=== PATIENT | female | born 1950 | race Caucasian/White ===

== ENCOUNTER 2024-06-05 21:16 | Emergency (ER) | payer OTHER, SELFPAY ==
[2024-06-05 21:32] VITALS: BP 111/57; PULSE 59; RESP 18; TEMP 37.5; O2SAT 97; BMI 17.7
--- NOTE | 2024-06-05 21:39 | DI.RAD.S_ITS ---
PROCEDURE: XR FOREARM RT 2V INDICATIONS: patient fell on and injured Right arm TECHNIQUE: 2 views of the forearm were acquired. COMPARISON: None. FINDINGS: Bones: Comminuted mildly impacted fractures involving the distal radius and ulna. Soft tissues: No suspicious soft tissue calcifications or masses. IMPRESSION: Distal radial and ulnar comminuted fractures. Approved by: Lana Daniels M.D.,Ph.D. on 06/05/2024 at 22:50
--- NOTE | 2024-06-05 21:39 | DI.RAD.S_ITS ---
PROCEDURE: XR WRIST RT MIN 3V INDICATIONS: patient fell on and injured Right arm TECHNIQUE: 4 views of the wrist were acquired. COMPARISON: None. FINDINGS: Bones: Comminuted fractures involving the distal radius and ulna. 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 Soft tissues: No suspicious soft tissue calcifications. IMPRESSION: Distal radial and ulnar comminuted fractures. Approved by: Lana Daniels M.D.,Ph.D. on 06/05/2024 at 22:52
--- NOTE | 2024-06-05 21:39 | DI.RAD.S_ITS ---
PROCEDURE: XR HAND RT MIN 3V INDICATIONS: patient fell on and injured Right arm TECHNIQUE: 3 views of the hand(s) acquired. COMPARISON: Same-day wrist and forearm radiographs 06/05/2024. FINDINGS: Bones: No fractures or dislocations. Carpal bones are normally aligned. No suspicious bony lesions. Scattered interphalangeal degenerative changes. 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 Please see separately dictated wrist and forearm radiographs for description of ulnar and radial fractures. Soft tissues: No suspicious soft tissue calcifications. IMPRESSION: Distal radial and ulnar fractures. Scattered interphalangeal and 1st CMC joint degenerative changes. Approved by: Lana Daniels M.D.,Ph.D. on 06/05/2024 at 22:53
[2024-06-05] MEDS: OXYCODONE IR 5 MG TABLET PO (23:24)
[2024-06-05] MEDS: ACETAMINOPHEN 325 MG TABLET 975 MG PO (23:24)
[2024-06-05] MEDS: LIDOCAINE 2% INJ SDV 5ML 20 ML INJ (23:24)
--- NOTE | 2024-06-05 23:32 | ED_ITS ---
HPI - Extremity Injury (Upper) General Chief Complaint: Extremity Injury, Upper Stated Complaint: GLF No Thinners, R Wrist Injury Time Seen by Provider: 06/05/24 23:07 Source: patient Mode of arrival: Ambulatory History of Present Illness HPI narrative: 74-year-old female presents by private vehicle for evaluation of right wrist injury. She was walking into a building to watch a play when she tripped, landing sideways in the bushes. She used her right hand to catch herself in her fall. Obvious deformity to right wrist. Patient denies hitting her head, denies loss of consciousness, denies use of blood thinners. Related Data Previous Rx's Medication Instructions Recorded oxycodone-acetaminophen 5 mg-325 1 tab PO Q6H PRN pain #10 tabs 06/06/24 mg tablet Allergies Allergy/AdvReac Type Severity Reaction Status Date / Time No Known Drug Allergies Allergy Verified 06/05/24 21:32 Patient History Social History Smoking Status: Never smoker Smoking Status: Never smoker Exam Initial Vital Signs Initial Vital Signs: Vital Signs Temperature 99.5 F 06/05/24 21:32 Pulse Rate 59 L 06/05/24 21:32 Respiratory Rate 18 06/05/24 21:32 Blood Pressure 111/57 L 06/05/24 21:32 Pulse Oximetry 97 06/05/24 21:32 Oxygen Delivery Method Room Air 06/05/24 21:32 Const: Awake, alert, no acute distress, nontoxic appearing Cardiac: Bradycardia, regular rhythm RESP: unlabored, conversational without dyspnea GI: Soft, nontender, nondistended, no rebound, no guarding MSK: Obvious deformity to right wrist, strong radial pulses, intact sensation, able to wiggle fingers, capillary refill less than 2 seconds Skin: Warm, Dry, intact, no rashes Neuro: AO x3, CN II-XII grossly intact, moves all extremities Procedures Nerve Block Nerve Block 1: Time out performed: Yes Local Anesthetic: lidocaine 2% Amount of anesthesia used (mL): 10 Side: right Intraoral Nerve Block: other (hematoma) Procedure Successful: Yes Patient Tolerated Procedure: Well and No complications Complications: none Orthopedic Fracture Reduction Fracture #1: Time Out Performed: Yes Side: right Fracture Reduction Location: radius and ulna Analgesia: hematoma block Technique: direct manipulation and traction/counter-traction Post Reduction X-rays Demonstrate: acceptable reduction Post-reduction neuro exam: intact Post-reduction vascular exam: intact Splint Applied: Yes Patient Tolerated Procedure: Well and No complications Course Orders Ordered: Discontinued Medications Acetaminophen (Acetaminophen 325 Mg Tablet) 975 mg PO NOW ONE Stop: 06/05/24 23:08 Last Admin: 06/05/24 23:24 Dose: 975 mg Documented By: TARIQ Lidocaine HCl (Lidocaine 2% Inj Sdv 5ml) 20 ml INJ NOW ONE Stop: 06/05/24 23:08 Last Admin: 06/05/24 23:24 Dose: 20 ml Documented By: TARIQ Lidocaine HCl (Lidocaine 1% 20 Ml) 3 ml SUBCUT NOW ONE Stop: 06/05/24 23:18 Lidocaine HCl (Lidocaine 2% Inj Sdv 5ml) 10 ml TOP NOW ONE Stop: 06/05/24 23:19 Last Admin: 06/05/24 23:24 Dose: Not Given Documented By: TARIQ Ondansetron HCl (Ondansetron 4 Mg Odt Prepack) 1 bottle MISC DIRECTED ONE Stop: 06/06/24 00:48 Last Admin: 06/06/24 01:03 Dose: 1 bottle Documented By: TARIQ Oxycodone HCl (Oxycodone Ir 5 Mg Tablet) 5 mg PO NOW ONE Stop: 06/05/24 23:08 Last Admin: 06/05/24 23:24 Dose: 5 mg Documented By: TARIQ Oxycodone/Acetaminophen (Oxycodone/Apap 5/325 Prepack) 1 bottle MISC DIRECTED ONE Stop: 06/06/24 00:48 Last Admin: 06/06/24 01:03 Dose: 1 bottle Documented By: TARIQ Vital Signs Vital signs: Vital Signs - 8 hr 06/06/24 01:27 Pulse Rate 58 L Respiratory Rate 16 Blood Pressure 110/60 Pulse Oximetry 100 MDM - Extremity Injury (Upper) Imaging Data Extremity x-ray #1: Radiologist's Impression: PROCEDURE: XR WRIST RT MIN 3V INDICATIONS: patient fell on and injured Right arm TECHNIQUE: 4 views of the wrist were acquired. COMPARISON: None. FINDINGS: Bones: Comminuted fractures involving the distal radius and ulna. 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 Soft tissues: No suspicious soft tissue calcifications. IMPRESSION: Distal radial and ulnar comminuted fractures. Approved by: Lana Daniels M.D.,Ph.D. on 06/05/2024 at 22:52 Extremity x-ray #2: Radiologist's Impression: PROCEDURE: XR WRIST RT 2V INDICATIONS: post reduction image TECHNIQUE: 2 views of the wrist were acquired. COMPARISON: [facility], CR, XR WRIST RT MIN 3V, 06/05/2024, 21:38. FINDINGS: Bones: Status post interval casting, which partially obscures the fine osseous and soft tissue detail. There is redemonstration of comminuted distal radial fracture with decreased impaction compared to prior radiograph. Distal ulnar comminuted fracture. Overall alignment status post reduction. Soft tissues: No suspicious soft tissue calcifications. IMPRESSION: Status post casting and reduction of distal radial and ulnar fractures in improved alignment compared to prior. Approved by: Lana Daniels M.D.,Ph.D. on 06/06/2024 at 1:20 MDM Narrative Medical decision making narrative: Ground level fall with obvious deformity to right wrist. Neurovascularly intact on arrival. Hematoma block administered with excellent analgesia. Patient initially had some neurapraxia type pains prior to reduction of wrist joint, however after traction was applied and the bones were set an improved alignment the patient reported resolution of the stinging pains in her hand. Post procedure and post splint application the patient had intact sensation, was able to wiggle her fingers, capillary refill less than 2 seconds, and pain well- controlled. Patient and her are initially from [facility] and are [facility] nearby overnight. They were counseled to come back to the ER if she exhibits severe worsening of her pain. Otherwise patient was given a phone number referral to Orthopedic surgery and counseled on the importance of follow up. Pain medication sent to pharmacy of choice. Discharge Plan Departure Patient Disposition: Home Clinical Impression: Fracture of wrist Instructions: DI for Wrist Fracture Activity Restrictions/Additional Instructions: You have a fracture of your radius and ulna bones, which are the bones of your wrist. We were able to manipulate your bones into better alignment today. Wear the splint until you follow up with Orthopedic surgery. Pain medications has been sent to your pharmacy. Do not take this medication with alcohol or before driving as it can cause drowsiness and puts you at increased risk of falling. This medication also causes constipation, so make sure that you take a stool softener with this medication. You will need to follow up with Orthopedic surgery to see if your wrist fracture will need surgery. Keeping your limb elevated above your heart level we will help decrease swelling and pain. Ice can also help with discomfort. If you notice severe worsening of your pain the 1st step is to loosen the dressings. If that does not improve your pain then you need to come back to the ER for repeat evaluation immediately. Prescriptions: New oxycodone-acetaminophen 5-325 mg tablet 1 tab PO Q6H PRN (Reason: pain) Qty: 10 0RF Referrals: Hanna Galvan MD [Physician] - Dwight Seth MD [Primary Care Provider] - Stand Alone Forms: Patient Portal/API/Survey
--- NOTE | 2024-06-06 00:37 | DI.RAD.S_ITS ---
PROCEDURE: XR WRIST RT 2V INDICATIONS: post reduction image TECHNIQUE: 2 views of the wrist were acquired. COMPARISON: [facility], , XR WRIST RT MIN 3V, 06/05/2024, 21:38. FINDINGS: Bones: Status post interval casting, which partially obscures the fine osseous and soft tissue detail. There is redemonstration of comminuted distal radial fracture with decreased impaction compared to prior radiograph. Distal ulnar comminuted fracture. Overall alignment status post reduction. Soft tissues: No suspicious soft tissue calcifications. IMPRESSION: Status post casting and reduction of distal radial and ulnar fractures in improved alignment compared to prior. Approved by: Lana Daniels M.D.,Ph.D. on 06/06/2024 at 1:20
--- NOTE | 2024-06-06 00:47 | PC.NURSE ---
Dr Yoder in to reduce fx and splint applied
[2024-06-06] MEDS: ONDANSETRON 4 MG ODT PREPACK 1 BOTTLE MISC (01:03)
[2024-06-06] MEDS: OXYCODONE/APAP 5/325 PREPACK 1 BOTTLE MISC (01:03)
[2024-06-06 01:27] VITALS: BP 110/60; PULSE 58; RESP 16; O2SAT 100
== END 2024-06-06 01:27 | disposition home or self-care (01) ==
PROVIDERS: Emergency Provider Emergency Medicine; PCP Family Medicine
DX: S52.501A Unspecified fracture of the lower end of right radius, initial encounter for closed fracture (principal); S52.601A Unspecified fracture of lower end of right ulna, initial encounter for closed fracture; W01.0XXA Fall on same level from slipping, tripping and stumbling without subsequent striking against object, initial encounter
CPT/HCPCS: 25605; 64450; 73090; 73100; 73110; 73130; 99283; 99284